=== PATIENT | female | born 2000 | race Two or more races ===

== ENCOUNTER 2020-10-31 22:05 | Emergency (ER) | payer BC, OTHER ==
[~2020-10-31] VITALS: Ht 167.6 cm; Wt 64.2 kg
[2020-10-31 22:11] VITALS: BP 110/67
--- NOTE | 2020-11-01 00:06 | NUR ---
Waiting for further orders.
== END 2020-11-01 00:39 | disposition home or self-care (01) ==
LOC: ED 11-01 00:19
DX: S46.911A Strain of unspecified muscle, fascia and tendon at shoulder and upper arm level, right arm, initial encounter (principal); X50.0XXA Overexertion from strenuous movement or load, initial encounter; Y93.89 Activity, other specified; Y92.89 Other specified places as the place of occurrence of the external cause; Y99.8 Other external cause status
CPT/HCPCS: 99283